=== PATIENT | female | born 1940 | race Caucasian/White ===

== ENCOUNTER → 2019-04-22 | Day surgery (SDC) | payer OTHER ==
[2019-04-21 14:38] LABS: BASOPHILS % 0.6 % (0.0-1.0); EOSINOPHILS # (AUTO) 0.2 (0.0-0.4); EOSINOPHILS % 3.5 % (0.0-6.0); HEMATOCRIT 39.8 % (34.2-44.1); HEMOGLOBIN 12.7 g/dL (12.0-16.0); LYMPHOCYTES # (AUTO) 1.4 (1.0-3.2); MEAN CORPUSCULAR HEMOGLOBIN 28.1 pg (28-32); MEAN CORPUSCULAR HGB CONC 31.9 g/dL (31-35); MEAN CORPUSCULAR VOLUME 88.1 fL (81-99); MONOCYTES # (AUTO) 0.6 (0.2-0.8); MONOCYTES % 8.3 % (4.4-11.3); NEUTROPHILS # (AUTO) 4.4 (2.1-6.9); NEUTROPHILS % 66.3 % (38.7-80.0); PLATELET COUNT 198 x10e3/uL (140-360); RED BLOOD COUNT 4.52 x10e6/uL (3.6-5.1); RED CELL DISTRIBUTION WIDTH 13.6 % (11.7-14.4)
[2019-04-21 14:52] LABS: ANION GAP 11.8 mmol/L (8-16); CALCIUM 9.9 mg/dL (8.4-10.2); CREATININE, SERUM 1.01 mg/dL (0.57-1.11); POTASSIUM 3.8 mmol/L (3.5-5.1)
--- NOTE | 2019-04-21 15:27 | Diagnostic Imaging Report ---
EXAMINATION: CHEST 2 VIEWS INDICATION: Pre-operative COMPARISON: None FINDINGS: LINES/TUBES:None LUNGS:The lungs are moderately inflated. No focal consolidation or pulmonary edema. Numerous bilateral lower lobe predominant calcified granulomas. PLEURA:No pleural effusion or pneumothorax. MEDIASTINUM:The cardiomediastinal silhouette appears normal in size and shape. Atherosclerotic calcifications of the thoracic aorta. BONES/SOFT TISSUES:No acute osseous injury. Degenerative changes of the visualized spine. Partially visualized cervical spine fusion hardware. ABDOMEN:No free air under the diaphragm. Surgical clips and sutures at the anterior upper abdomen. IMPRESSION: No focal pneumonia or pulmonary edema. Scattered bilateral calcified granulomas. Signed by: Rusty French MD on 04/21/2019 3:24 PM
[~2019-04-22] MED LIST: ACCURETIC 10-11 EACH PO; ACETAMINOPHEN 1000 MG/100 ML IV ONE; CALCIUM PO; CEFAZOLIN SOD 1 GM/NS 50ML 50 ML IV ONE; COQ-10100 MG PO; DEXAMETHASONE SOD PHOS INJ 4 MG/ML VIAL ONE; EPHEDRINE SULFATE INJ 50 MG/10 ML SYR ONE; EYE LUBRICANT OPTH OINT 3.5GM TUBE OP ONE; FENTANYL CITRATE/PF 100MCG/2 ML INJ ONE; FISH OIL PO; KETOROLAC TROMETHAMINE 30 MG/ML VIAL ONE; LIDOCAINE 1% W/EPINEPHRINE 20 ML VIAL ONE; LIDOCAINE HCL 2% LOCAL INJ 5 ML SDV VIAL INJ ONE; LORTAB 7.5-5001 EACH PO; MIDAZOLAM HCL 2 MG/2 ML VIAL ONE; MUPIROCIN 2% OINT 22 GM TUBE ONE; ONDANSETRON HCL INJ 2MG/ML 2ML 2 MG/ML VIAL ONE; OXYBUTYNIN CHLO10 MG OD; PHENYLEPHRINE HCL 1% 10 MG/ML VIAL ONE; PRAVASTATIN SOD20 MG PO; PROPOFOL IV EMULSION 10 MG/ML 20 ML VIAL ONE; QUINAPRIL-HCTZ1 EAC1; SERTRALINE HCL50 MG PO; SEVOFLURANE INHAL SOLN 250 ML PEN BTL ONE; [UNRECOGNIZED DRUG - OTHER] PO
--- OUTSIDE RECORDS SUMMARY | 2019-04-22 05:10 | XMS REPORT ---
Author [facility] Address Unknown Phone Unavailable Care Team Providers Care [employer] Chemist Name Role Phone ADY WELLS Unavailable Unavailable Payers Payer Name Policy Type Policy Number Effective Date Expiration Date Problems This patient has no known problems. Allergies, Adverse Reactions, Alerts Allergy Name Allergy Type Status Severity Reaction(s) Onset Date Inactive Date Treating Clinician Comments CODEINE DA Active U 2008-04-22 00:00:00 No Known Contrast Allergies DA Active U 2008-04-22 00:00:00 No Known Food Allergies DA Active U 2008-04-22 00:00:00 No Known Other Allergies DA Active U 2008-04-22 00:00:00 codeine DA Active U 2006-04-07 00:00:00 Medications This patient has no known medications. Results Test Description Test Time Test Comments Text Results Atomic Results Result Comments CHEST 2 VIEWS 2019-04-21 15:23:[address] [address] Patient Name: ALYSHA ANDINO MR #: [id number] : 1940 Age/Sex: 78/F Req #: [id number] Adm Physician: Ordered by: ADY WELLS MD Report #: [id number] Location: OR Room/Bed: Procedure: [id number] DX/CHEST 2 VIEWS Exam Date: 04/21/19 Exam Time: 1440 REPORT STATUS: Signed EXAMINATION: CHEST 2 VIEWS INDICATION: Pre-operative COMPARISON: None FINDINGS: LINES/TUBES:None LUNGS:The lungs are moderately inflated. No focal consolidation or pulmonary edema. Numerous bilateral lower lobe predominant calcified granulomas. PLEURA:No pleural effusion or pneumothorax. MEDIASTINUM:The cardiomediastinal silhouette appears normal in size and shape. Atherosclerotic calcifications of the thoracic aorta. BONES/SOFT TISSUES:No acute osseous injury. Degenerative changes of the visualized spine. Partially visualized cervical spine fusion hardware. ABDOMEN:No free air under the diaphragm. Surgical clips and sutures at the anterior upper abdomen. IMPRESSION: No focal pneumonia or pulmonary edema. Scattered bilateral calcified granulomas. Signed by: Elizabeth Will MD on 04/21/2019 3:24 PM Dictated By: ELIZABETH WILL MD 1524 Transcribed By: KENDRA on 04/21/19 1524 COPY TO: ADY WELLS MD - CT PELVIS W/O CONTRAST 2019-02-01 23:01:00 Name: ALYSHA ANDINO [facility] : 1940 Age/S: 78 / F [address] [place] [address] Unit #: [id number] Loc: [place] [address] Phys: Ren Hobbs MD Acct: [id number] Dis Date: Status: REG ER PHONE #: [phone] Exam Date: 02/01/20192241 FAX #: [phone] Reason: R/O OCCULT PELVIC FRACTURES EXAMS: CPT CODE: [id number] CT PELVIS W/O CONTRAST 97642 PROCEDURE: CT PELVIS WITHOUT CONTRAST INDICATION: 78-year-old female with left hip pain post fall. Abnormal radiographs. COMPARISON: Current left hip radiographs. TECHNIQUE: Helical imaging was performed iliac crests through the symphysis with multiplanar reconstructions. CT imaging performed at this location utilizes radiation dose optimization techniques which include one or more of the following: -Automated exposure control -Adjustment of the mA and/or kV according to patient size -Use of iterative reconstruction technique CT Radiation Dose DLP 526.87 mGy-cm FINDINGS: There are chronic healed fracture deformities of the left innominate bone with chronic deformity of the left iliac wing and chronic healed deformities of the superior and inferior pubic rami. Assessment of the acetabulum and rami is limited in the setting of streak artifact from left hip prosthesis. No acute fracture demonstrated. The acetabular and femoral components are in place. No radiographic evidence for loosening. The proximal femur is intact. Chronic healed fracture deformities of the right superior and inferior pubic rami. The proximal right femur is intact and located. Mild degenerative changes of the hip. Degenerative changes sacroiliac joints. Sacrum is intact. Advanced degenerative changes lower lumbar spine. Grade 1 anterolisthesis L4 relative to L5 with advanced facet arthropathy present. The regional musculotendinous structures are unremarkable. Examination not designed for survey of the pelvic contents. Assessment of the lower pelvis limited by streak artifact from hip prosthesis. No mass lesion or fluid collection demonstrated. The urinary bladder is grossly n ormal. No free intraperitoneal fluid. Atherosclerosis aortoiliac system. Wide neck ventral hernia with previous hernia repair. Small midline ventral hernia defect immediately inferior of the hernia repair containing short segment of small bowel without obstruction or regional inflammation. IMPRESSION: PAGE 1 Signed Report (CONTINUED) Name: ALYSHA ANDINO [facility] : 1940 Age/S: 78 / F [address] [place] [address] Unit #: [id number] Loc: [place] [address] Phys: Ren Hobbs MD Acct: [id number] Dis Date: Status: REG ER PHONE #: [phone] Exam Date: 02/01/20192241 FAX #: [phone] Reason: R/O OCCULT PELVIC FRACTURES EXAMS: CPT CODE: [id number] CT PELVIS W/O CONTRAST 30738 <Continued> 1. Chronic healed fracture deformities bilateral innominate bones. 2. Left hip prosthesis in place. No fracture or dislocation. 3. Within limitations noted, no acute fracture demonstrated. 4. Incidental small ventral hernia defect containing short segment of small bowel. If there is continued clinical concern, further imaging options include MRI. SL: LAUREN at 2301 Reported and signed by: Stanton Warner M.D. CC: Wilfredo Barkley MD; Ren Hobbs MD Technologist:Marycruz Alan, RT(R)(CT) CTDI: DLP: Trnscb Date/Time: 02/01/2019 (2300) TameraKWL Orig Print D/T: S: 02/01/2019 (0321) PAGE 2 Signed Report - CT HEAD/BRAIN W/O CONT 2019-02-01 21:55:00 Name: ALYSHA ANDINO [facility] : 1940 Age/S: 78 / F [address] [place] [address] Blvd Unit #: [id number] Loc: [place] [address] Phys: Ren Hobbs MD Acct: [id number] Dis Date: Status: REG ER PHONE #: [phone] Exam Date: 02/01/20192126 FAX #: [phone] Reason: HEADACHE EXAMS: CPT CODE: [id number] CT HEAD/BRAIN W/O CONT 17697 Clinical Indication: HEADACHE; Comparison: None TECHNIQUE: CT images were obtained from the foramen magnum to the vertex without the use of intravenous contrast on a multidetector CT. Coronal and sagittal reconstructions were obtained. CT radiation dose DLP: 419 mGy-cm FINDINGS: BRAIN PARENCHYMA: Diffuse age-related brain atrophy is present. There are normal mcnulty-white interfaces, sulci and gyri. There are no focal mass lesions on this noncontrast head CT. There is no mass effect, midline shift or edema. There are no intra-axial or extra-axial fluid collections, intraventricular or intraparenchymal hemorrhage. The pineal, sellar, brainstem, cerebellum and skull base regions appear unremarkable. Mild to moderate nonspecific deep white matter and periventricular white matter disease changes are noted. VENTRICLES: The lateral ventricles, third and fourth ventricles appear unremarkable. The basilar cisterns are normal. ORBITS, MASTOIDS AND PARANASAL SINUSES: Mucosal thickening is seen in the bilateral maxillary sinuses. The morocho of the maxillary sinuses are thickened, with chronic sinusitis. The visualized orbits and paranasal sinuses are unremarkable. The mastoid air cells are clear. SKULL: There are no osseous abnormalities. If there is further concern for intracranial pathology or acute st roke, MRI of the brain may be performed for complete assessment. IMPRESSION: 1. Unremarkable noncontrast head CT with no mass, hemorrhage or subacute stroke. 2. Age-related brain atrophy with anmi-su-dlrvxtne chronic age-related and small vessel ischemic changes. 3. Chronic sinusitis affecting the maxillary sinuses. SL: LANVU-H PAGE 1 Signed Report (CONTINUED) Name: ALYSHA ANDINO [facility] : 1940 Age/S: 78 / F [address] [place] [address] Unit #: [id number] Loc: [place] [address] Phys: Ren Hobbs MD Acct: [id number] Dis Date: Status: REG ER PHONE #: [phone] Exam Date: 02/01/20192126 FAX #: [phone] Reason: HEADACHE EXAMS: CPT CODE: [id number] CT HEAD/BRAIN W/O CONT 88722 <Continued> at 2155 Reported and signed by: Jhonny Collier M.D. CC: Wilfredo Barkley MD; Ren Hobbs MD Technologist:Marycruz Alan, RT(R)(CT) CTDI: DLP: Trnscb Date/Time: 02/01/2019 (2154) [email or web address] Orig Print D/T: S: 02/01/2019 (2157) PAGE 2 Signed Report - CT MAXIFAC W/O CONTRAST 2019-02-01 21:52:00 Name: ALYSHA ANDINO [facility] : 1940 Age/S: 78 / F [address] [place] [address] Unit #: [id number] Loc: [place] [address] Phys: Ren Hobbs MD Acct: [id number] Dis Date: Status: REG ER PHONE #: [phone] Exam Date: 02/01/20192126 FAX #: [phone] Reason: fall with significant l sided facial trauma EXAMS: CPT CODE: [id number] CT MAXIFAC W/O CONTRAST 40184 PROCEDURE: CT MAXILLOFACIAL WITHOUT CONTRAST INDICATION: Fall with significant left sided facial trauma. Laceration. COMPARISON: None. TECHNIQUE: Noncontrast helical imaging of the maxillofacial bones and mandible was performed. Multiplanar reconstructions are available. CT imaging performed at this location utilizes radiation dose optimization techniques which include one or more of the following: -Automated exposure control -Adjustment of the mA and/or kV according to patient size -Use of iterative reconstruction technique CT Radiation Dose DLP 351.44 mGy-cm FINDINGS: FACIAL BONES: The maxilla is intact. The pterygoid plates are intact. The zygomatic arches are intact. The orbital roof, floor, superior, inferior, medial and lateral morocho are intact. The cribriform plate and fovea ethmoidalis are intact. The mandible is intact and located. The nasal bones are intact. The nasal septum is midline. NASAL CAVITY AND PARANASAL SINUSES: The nasal turbinates are unremarkable. Chronic mucoperiosteal thickening bilateral maxillary antra. Small fluid level right maxillary antrum. Patchy mucosal thickening in the ethmoid sinuses bilateral. The frontal and sphenoid sinuses are pneumatized. SOFT TISSUES: Soft tissue swelling left face with laceration. No radiopaque foreign material. No focal fluid collection. ORBITS: Previous right cataract surgery. The orbital contents are otherwise unremarkable. IMPRESSION: 1. Left facial laceration. 2. Negative for fracture. 3. Chronic paranasal sinus mucosal disease. SL: LAUREN PAGE 1 Signed Report (CONTINUED) Name: ALYSHA ANDINO [facility] : 1940 Age/S: 78 / F [address] [place] [address] Unit #: [id number] Loc: [place] [address] Phys: Ren Welch MD Acct: [id number] Dis Date: Status: REG ER PHONE #: [phone] Exam Date: 02/01/20192126 FAX #: [phone] Reason: fall with significant l sided facial trauma EXAMS: CPT CODE: [id number] CT MAXIFAC W/O CONTRAST 37489 <Continued> at 2152 Reported and signed by: Stanton Warner M.D. CC: Wilfredo Barkley MD; Ren Hobbs MD Technologist:Marycruz Alan, RT(R)(CT) CTDI: DLP: Trnscb Date/Time: 02/01/2019 (2151) [email or web address] Orig Print D/T: S: 02/01/2019 (9826) PAGE 2 Signed Report - XR CHEST 1 V 2019-02-01 21:42:00 FAX: Wilfredo Ahuja MD [phone] [place]: St: REG FAX: Ren Hobbs MD [phone] Name: ALYSHA ANDINO [facility] : 1940 Age/S: 78/F [address] [place] [address] Unit #: [id number] Loc: [address] [address] Phys: Ren Hobbs MD Acct: [id number] Dis Date: Status: REG ER PHONE #: [phone] Exam Date: 02/01/20192135 FAX #: [phone] Reason: CHEST PAIN EXAMS: CPT CODE: [id number] XR CHEST 1 V 51377 PROCEDURE: CHEST SINGLE VIEW INDICATION: Chest pain post fall COMPARISON: CT chest 09/18/2015 FINDINGS: Multiple calcified granulomata bilateral lungs. Associated calcified hilar and mediastinal nodes. The lungs are otherwise clear. No pleural abnormality. Mild prominence of the cardiac silhouette likely magnified by projection. Atherosclerosis thoracic aorta. The pulmonary vasculature is normal. Postoperative changes gastroesophageal junction with anastomotic suture material. Multilevel degenerative changes of the spine. Previous cervical fusion. Chronic appearing fracture deformity proximal right humerus. No acute skeletal abnormality. IMPRESSION: 1. No acute radiographic abnormality. 2. Chronic residua of previous granulomatous disease. SL: LAUREN at 2142 Reported and signed by: Stanton Warner M.D. CC: Wilfredo Barkley MD; Ren Hobbs MD Technologist: Russell Wei RT(R) Trnscrd Date/Time/By: 02/01/2019 (2141) : By: TameraKWL Orig Print D/T: S: 02/01/2019 (2144) PAGE 1 Signed Report - XR HIP W/PEL UNI 2+V LT 2019-02-01 21:41:00 FAX: Wilfredo Ahuja MD [phone] [place]: St: REG FAX: Ren Hobbs MD [phone] Name: KALANIFAHADALYSHA [facility] : 1940 Age/S: 78/F [address] [place] [address] Unit #: [id number] Loc: [address] [place] [address] Phys: Ren Hobbs MD Acct: [id number] Dis Date: Status: REG ER PHONE #: [phone] Exam Date: 02/01/20192135 FAX #: [phone] Reason: HIP PAIN EXAMS: CPT CODE: [id number] XR HIP W/PEL UNI 2+[place] [address] Clinical Indication: HIP PAIN Comparison: None FINDINGS: The AP pelvis radiograph shows cortical irregularity and a lucent line at the left inferior pubic rami. A healed left superior pubic rami fracture is noted. The pelvic and obturator rings are intact. The pubic rami are intact. The symphysis pubis and sacroiliac joints are unremarkable. The visualized sacral foramina are unremarkable. A left hip arthroplasty is present, in anatomical alignment without any complications. If there is further concern, recommend follow-up radiographs or bone scan for complete assessment. IMPRESSION: Cortical irregularity and a lucency at the left inferior pubic rami. A fracture is suspected. Age is indeterminant. Correlate for acuity. SL: RIP at 2141 Reported and signed by: Jhonny Collier M.D. CC: Wilfredo Barkley MD; Ren Hobbs MD Technologist: RT Carter(rKis) Trnscrd Date/Time/By: 02/01/2019 (2140) : By: TameraLNV Orig Print D/T: S: 02/01/2019 (6) PAGE 1 Signed Report - XR SHOULDER 2 + V LT 2019-02-01 21:39:00 FAX: Wilfredo Ahuja MD [phone] [facility]: St: REG FAX: Ren Hobbs MD [phone] Name: ALYSHA ANDINO [facility] : 1940 Age/S: 78/F [address] [place] [address] Unit #: [id number] Loc: [address] [address] Phys: Ren Hobbs MD Acct: [id number] Dis Date: Status: REG ER PHONE #: [phone] Exam Date: 02/01/20192135 FAX #: [phone] Reason: SHOULDER PAIN EXAMS: CPT CODE: [id number] XR SHOULDER 2 + [place] [address] PROCEDURE: Left Shoulder 3 views INDICATION: Left shoulder pain post fall COMPARISON: None. FINDINGS: AP views with the humerus in internal and external rotation and transscapular view were obtained. No fracture, dislocation or other acute skeletal abnormality. Degenerative change acromioclavicular joint. Subcutaneous stranding overlying the left shoulder. No radiopaque foreign material. Calcified granulomata and calcified nodes compatible with residua of previous granulomatous disease in the visualized chest. Previous cervical fusion. IMPRESSION: 1. Soft tissue swelling. 2. Negative for fracture. SL: LAUREN at 2139 Reported and signed by: Stanton Warner M.D. CC: Wilfredo Barkley MD; Ren Hobbs MD Technologist: Russell Wei RT(R) Trnscrd Date/Time/By: 02/01/2019 (2138) : By: Bee Orig Print D/T: S: 02/01/2019 (2141) PAGE 1 Signed Report - XR FEMUR MIN 2 VWS LT 2019-02-01 21:37:00 FAX: Wilfredo Ahuja MD [phone] [facility]: St: REG FAX: Ren Hobbs MD [phone] Name: ALYSHA ANDINO [facility] : 1940 Age/S: 78/F [address] [place] [address] Unit #: [id number] Loc: [address] [address] Phys: Ren Hobbs MD Acct: [id number] Dis Date: Status: REG ER PHONE #: [phone] Exam Date: 02/01/20192135 FAX #: [phone] Reason: THIGH PAIN EXAMS: CPT CODE: [id number] XR FEMUR MIN 2 [place] [address] Clinical Indication: THIGH PAIN Comparison: None FINDINGS: A total left hip arthroplasty is visualized, in anatomical alignment without any complications. No acute fracture or dislocation is seen. The joint spaces are preserved. No radiopaque foreign body is seen in the soft tissues. The soft tissues are unremarkable. IMPRESSION: No acute fracture or dislocation of the left femur. SL: EVAUPhilippeH at 2137 Reported and signed by: Jhonny Collier M.D. CC: Wilfredo Barkley MD; Ren Hobbs MD Technologist: RT Carter(R) Trnscwill Date/Time/By: 02/01/2019 (2136) : By: TameraLNV Orig Print D/T: S: 02/01/2019 (2139) PAGE 1 Signed Report - XR HUMERUS 2 + V LT 2019-02-01 21:35:00 FAX: Wilfredo Ahuja MD [phone] [facility] [place]: St: REG FAX: Ren Hobbs MD [phone] Name: ALYSHA ANDINO [facility] : 1940 Age/S: 78/F [address] [place] [address] Unit #: [id number] Loc: [address] [address] Phys: Ren Hobbs MD Acct: [id number] Dis Date: Status: REG ER PHONE #: [phone] Exam Date: 02/01/20192135 FAX #: [phone] Reason: ARM PAIN EXAMS: CPT CODE: [id number] XR HUMERUS 2 + [place] [address] Clinical Indication: ARM PAIN Comparison: None FINDINGS: No acute fracture or dislocation is seen. The joint spaces are preserved. No radiopaque foreign body is seen in the soft tissues. The soft tissues are unremarkable. IMPRESSION: No acute fracture or dislocation of the left humerus. SL: LANVU-H at 2135 Reported and signed by: Jhonny Collier M.D. CC: Wilfredo Barkley MD; Ren Hobbs MD Technologist: RT Carter(R) Trnscwill Date/Time/By: 02/01/2019 (2134) : By: [email or web address] Orig Print D/T: S: 02/01/2019 (2137) PAGE 1 Signed Report BASIC METABOLIC PANEL 2019-02-01 21:17:00 SODIUM (test code=NA) 141 mEq/L 134-147 POTASSIUM (test code=K) 3.6 mEq/L 3.4-5.0 CHLORIDE (test code=CL) 107 mEq/L 100-108 CARBON DIOXIDE (test code=CO2) 28 mEq/L 21-33 ANION GAP (test code=GAP) 10 0-20 GLUCOSE (test code=GLU) 105 mg/dL 70-110 BLOOD UREA NITROGEN (test code=BUN) 25 mg/dL 7-18 GLOMERULAR FILTRATION RATE (test code=GFR) 60.6 70-80 Units of measure=ml/min/1.73 m2 CREATININE (test code=CREAT) 0.9 mg/dL 0.6-1.3 CALCIUM (test code=CA) 9.5 mg/dL 8.0-10.5 CBC W/AUTO [id number] 20:58:00* Test Item Value Reference Range Comments WHITE BLOOD CELL (test code=WBC) 6.71 x10 3/uL 4.5-11.0 RED BLOOD CELL (test code=RBC) 4.20 x10 6/uL 3.54-5.02 HEMOGLOBIN (test code=HGB) 11.4 g/dL 11.0-15.0 HEMATOCRIT (test code=HCT) 36.5 % 33.0-45.0 MEAN CELL VOLUME (test code=MCV) 86.9 fL 81.0-99.0 MEAN CELL HGB (test code=MCH) 27.1 pg 27.0-33.0 MEAN CELL HGB CONCETRATION (test code=MCHC) 31.2 g/dL 33.0-37.0 RED CELL DISTRIBUTION WIDTH CV (test code=RDW) 13.4 % 11.5-14.5 RED CELL DISTRIBUTION WIDTH SD (test code=RDW-SD) 42.8 fL 37.0-54.0 PLATELET COUNT (test code=PLT) 189 x10 3/uL 150-400 MEAN PLATELET VOLUME (test code=MPV) 12.0 fL 7.0-9.0 NEUTROPHIL % (test code=NT%) 64.0 % 56.0-77.0 IMMATURE GRANULOCYTE % (test code=IG%) 0.1 % 0.0-2.0 LYMPHOCYTE % (test code=LY%) 21.8 % 14.0-32.0 MONOCYTE % (test code=MO%) 9.5 % 4.8-9.0 EOSINOPHIL % (test code=EO%) 3.9 % 0.3-3.7 BASOPHIL % (test code=BA%) 0.7 % 0.0-2.0 NUCLEATED RBC % (test code=NRBC%) 0.0 % 0-0 NEUTROPHIL # (test code=NT#) 4.29 x10 3/uL 2.0-7.6 IMMATURE GRANULOCYTE # (test code=IG#) 0.01 x10 3/uL 0.00-0.03 LYMPHOCYTE # (test code=LY#) 1.46 x10 3/uL 1.0-3.8 MONOCYTE # (test code=MO#) 0.64 x10 3/uL 0.1-0.8 EOSINOPHIL # (test code=EO#) 0.26 x10 3/uL 0.0-0.2 BASOPHIL # (test code=BA#) 0.05 x10 3/uL 0.0-0.2 NUCLEATED RBC # (test code=NRBC#) 0.00 x10 3/uL 0.0-0.1 MANUAL DIFF REQUIRED (test code=MDIFF) NO
[2019-04-22 09:00] VITALS: BP 135/71
--- NOTE | 2019-04-22 10:18 | Operative Report ---
DATE OF PROCEDURE: 04/22/2019 SURGEON: Abdias Benites MD PREOPERATIVE DIAGNOSIS: Neoplasm, left cheek. POSTOPERATIVE DIAGNOSIS: Neoplasm, left cheek, pending final pathology. PROCEDURE: Excision of neoplasm of the left cheek 3 cm and then a flap closure. ANESTHESIA: General. HISTORY: The patient is a 78-year-old female, who states that she had a laceration on the left cheek and when it healed, she now has a neoplasm that measures approximately 3 cm in diameter. It is smooth, it is elevated with irregular borders. The risks, benefits, and alternatives were discussed with the patient. She is prepared to undergo the procedure as outlined. PROCEDURE IN DETAIL: The patient was marked preoperatively in the holding area. She was brought to the operating theater and after the induction of adequate general anesthesia, she was prepped and draped in a supine position and a time-out was performed. The neoplasm was marked out and a 1 cm rim of normal tissue was included in the markings. The entire left cheek was then infiltrated with 1% Xylocaine with epinephrine. After waiting appropriate amount of time for maximum vasoconstrictive effect, the incision was made through the skin and subcutaneous tissue. Bleeding was controlled using electrocautery. The dissection continues into the subcutaneous plane where the neoplasm was removed. A single stitch was used to orient the specimen and it was then sent for permanent pathologic examination. The defect measures approximately 5 cm x 2 cm and significant undermining of the cheek was performed in order to allow rotation advancement of the cheek superiorly and laterally in order not to put undue tension on the lateral canthus. After this was accomplished with electrocautery, hemostasis was made absolute with electrocautery. Using 4-0 Vicryl sutures in an interrupted buried fashion, the skin edges are approximated and there was noted to be no significant tension and no undue traction on the lower eyelid or lateral canthus. Finally, 5-0 nylon was used in interrupted horizontal mattress fashion and then Bactroban ointment and Xeroform gauze were used to dress the wound and sterile dressings were placed over. The estimated blood loss for the procedure was 10-15 mL. The patient tolerated the procedure well and was brought to recovery in satisfactory condition and discharged with a postoperative instruction sheet as well as a followup appointment. MD FRIEDA Kong/LOBITOL /[id number]
== END | disposition home or self-care (01) ==
LOC: OR 05:00
PROVIDERS: ATTEND Plastic Surgery
DX: D49.2 Neoplasm of unspecified behavior of bone, soft tissue, and skin (principal); I10 Essential (primary) hypertension; E78.5 Hyperlipidemia, unspecified; K21.9 Gastro-esophageal reflux disease without esophagitis; M19.90 Unspecified osteoarthritis, unspecified site; R53.1 Weakness; R06.02 Shortness of breath; F41.9 Anxiety disorder, unspecified; Z88.6 Allergy status to analgesic agent; Z01.810 Encounter for preprocedural cardiovascular examination; Z01.812 Encounter for preprocedural laboratory examination; Z01.818 Encounter for other preprocedural examination
CPT/HCPCS: 14040; 36415; 71046; 80048; 85025; 88305; 93005; J0131; J0690; J1100; J1885; J2001; J2250; J2370; J2405; J2704; J3010